=== PATIENT | female | born 1975 | race Caucasian/White ===

== ENCOUNTER → 2016-06-17 | Outpatient (CLI) | payer BC ==
--- NOTE | 2016-06-18 09:56 | MM ---
Reason for exam: screening (asymptomatic). Last mammogram was performed 1 year and 4 months ago. History: Patient history of other cancer and had first child at age 34. Family history of breast cancer in mother and breast cancer in 2 grandmothers. Physical Findings: A clinical breast exam by your physician is recommended on an annual basis and results should be correlated with mammographic findings. MG 3D Screening Mammo W/Cad Bilateral CC and MLO view(s) were taken. Prior study comparison: February 24, 2015, bilateral MG screening mammo w CAD. June 15, 2005, bilateral screening mammogram w/CAD. The breast tissue is heterogeneously dense. This may lower the sensitivity of mammography. No significant changes when compared with prior studies. ASSESSMENT: Benign, BI-RAD 2 RECOMMENDATION: Routine screening mammogram of both breasts in 1 year.
== END | disposition home or self-care (01) ==
LOC: RADMAMWWP 13:15
PROVIDERS: ATTEND Family Medicine
DX: Z12.31 Encounter for screening mammogram for malignant neoplasm of breast (principal)
CPT/HCPCS: 77063; G0202

== ENCOUNTER → 2016-06-17 | Outpatient (CLI) | payer BC ==
[2016-06-17 13:47] LABS: Basophils % (A) 0 %; CH 28.9; CHCM 33.4; Eosinophils # (A) 0.1 k/uL (0-0.7); Eosinophils % (A) 1 %; HCT 45.3 % (34.0-46.0); HDW 2.55; HGB 15.1 gm/dL (11.4-16.0); Luc # (Auto) 0.16; Luc % (Auto) 2; Lymphocytes # (A) 2.4 k/uL (1.0-4.8); Lymphocytes % (A) 32 %; MCH 28.9 pg (25.0-35.0); MCHC 33.3 g/dL (31.0-37.0); MCV 86.9 fL (80.0-100.0); Mean Platelet Volume 7.7; Monocytes # (A) 0.5 k/uL (0-1.0); Monocytes % (A) 7 %; Neutrophils # (A) 4.5 k/uL (1.3-7.7); Neutrophils % (A) 58 %; RBC 5.21 m/uL (3.80-5.40); RDW 13.7 % (11.5-15.5); WBC 7.6 k/uL (3.8-10.6); WBC (Perox) 7.98
[2016-06-17 14:07] LABS: ALT 44 U/L (9-52); AST 28 U/L (14-36); Alkaline Phosphatase 67 U/L (38-126); Anion Gap 13 mmol/L; Blood Urea Nitrogen 13 mg/dL (7-17); Calcium 8.3 mg/dL (8.4-10.2); Carbon Dioxide 27 mmol/L (22-30); Chloride 102 mmol/L (98-107); Glucose 81 mg/dL (74-99); Non-African American GFR(MDRD) >60 (>60 ml/min/1.73 sqM); Potassium 4.3 mmol/L (3.5-5.1); Sodium 142 mmol/L (137-145); Total Bilirubin 0.8 mg/dL (0.2-1.3); Total Protein 7.2 g/dL (6.3-8.2)
== END | disposition home or self-care (01) ==
LOC: LABWHC1 12:54
PROVIDERS: ATTEND Nurse Practitioner Adult Health
DX: Z00.00 Encounter for general adult medical examination without abnormal findings (principal); E03.9 Hypothyroidism, unspecified; E55.9 Vitamin D deficiency, unspecified
CPT/HCPCS: 36415; 80053; 82306; 84439; 84443; 85025

== ENCOUNTER → 2016-06-18 | Outpatient (CLI) | payer BC ==
[2016-06-18 11:30] LABS: Cholesterol 197 mg/dL (<200); HDL Cholesterol 37 mg/dL (40-60); Triglycerides 128 mg/dL (<150)
== END | disposition home or self-care (01) ==
LOC: LABWHC1 10:18
PROVIDERS: ATTEND Nurse Practitioner Adult Health
DX: Z00.00 Encounter for general adult medical examination without abnormal findings (principal); E03.9 Hypothyroidism, unspecified; E55.9 Vitamin D deficiency, unspecified
CPT/HCPCS: 36415; 80061

== ENCOUNTER → 2016-08-12 | Outpatient (CLI) | payer BC | LOC: LABWHC1 14:57 | PROVIDERS: ATTEND Internal Medicine Endocrinology, Diabetes & Metabolism | DX: C73 Malignant neoplasm of thyroid gland (principal); E89.0 Postprocedural hypothyroidism; E89.2 Postprocedural hypoparathyroidism; E55.9 Vitamin D deficiency, unspecified | CPT/HCPCS: 36415; 82306; 83970; 84432; 84439; 84443; 86800 ==

== ENCOUNTER → 2016-08-19 | Outpatient (CLI) | payer BC ==
--- NOTE | 2016-08-19 17:54 | US ---
EXAMINATION TYPE: US thyroid st tissue head/neck DATE OF EXAM: 08/19/2016 5:42 PM COMPARISON: NONE CLINICAL HISTORY: [id number] neoplasm of thyroid gland E89.thyroidectomy 2007, hx of thyroid cancer . Bilateral neck scanned, no evidence of lymphadenopathy. No residual tissue noted. IMPRESSION: No discrete neck mass. Bilateral thyroidectomy noted.
== END | disposition home or self-care (01) ==
LOC: RADUSMAIN 17:25
PROVIDERS: ATTEND Internal Medicine Endocrinology, Diabetes & Metabolism
DX: C73 Malignant neoplasm of thyroid gland (principal); E89.0 Postprocedural hypothyroidism; E89.2 Postprocedural hypoparathyroidism
CPT/HCPCS: 76536

== ENCOUNTER → 2017-08-27 | Outpatient (CLI) | payer BC ==
[2017-08-27 08:43] LABS: Basophils % (A) 0 %; Eosinophils % (A) 0 %; HCT 44.1 % (34.0-46.0); HGB 14.9 gm/dL (11.4-16.0); Lymphocytes # (A) 2.1 k/uL (1.0-4.8); Lymphocytes % (A) 29 %; MCH 28.7 pg (25.0-35.0); MCHC 33.8 g/dL (31.0-37.0); Mean Platelet Volume 7.5; Monocytes # (A) 0.5 k/uL (0-1.0); Monocytes % (A) 7 %; Neutrophils # (A) 4.5 k/uL (1.3-7.7); Neutrophils % (A) 62 %; Platelet Count 252 k/uL (150-450); RBC 5.19 m/uL (3.80-5.40); RDW 13.8 % (11.5-15.5); WBC 7.2 k/uL (3.8-10.6)
[2017-08-27 08:56] LABS: ALT 54 U/L (9-52); AST 25 U/L (14-36); Albumin 4.1 g/dL (3.5-5.0); Alkaline Phosphatase 51 U/L (38-126); Anion Gap 11 mmol/L; Blood Urea Nitrogen 17 mg/dL (7-17); Calcium 7.8 mg/dL (8.4-10.2); Carbon Dioxide 27 mmol/L (22-30); Chloride 106 mmol/L (98-107); Cholesterol 159 mg/dL (<200); Glucose 93 mg/dL (74-99); HDL Cholesterol 34 mg/dL (40-60); LDL Cholesterol,Calculated 99 mg/dL (0-99); Potassium 4.7 mmol/L (3.5-5.1); Sodium 144 mmol/L (137-145); Total Bilirubin 0.3 mg/dL (0.2-1.3); Total Protein 6.8 g/dL (6.3-8.2); Triglycerides 130 mg/dL (<150)
[2017-08-27 09:12] LABS: T4, Free (Free Thyroxine) 0.84 ng/dL (0.78-2.19)
[2017-08-27 17:12] LABS: Vitamin D 25 Hydroxy 90.9 ng/mL (30.0-100.0)
[2017-08-27 17:15] LABS: Parathyroid Hormone Intact 34.8 pg/mL (14.0-72.0)
== END | disposition home or self-care (01) ==
LOC: LABWHC1 08:13
PROVIDERS: ATTEND Family Medicine
DX: Z00.00 Encounter for general adult medical examination without abnormal findings (principal); C73 Malignant neoplasm of thyroid gland; E89.0 Postprocedural hypothyroidism; E55.9 Vitamin D deficiency, unspecified; E89.2 Postprocedural hypoparathyroidism
CPT/HCPCS: 36415; 80053; 80061; 82306; 83970; 84439; 84443; 85025; 86800

== ENCOUNTER → 2017-10-04 | Outpatient (CLI) | payer BC ==
--- NOTE | 2017-10-05 11:09 | MM ---
Reason for exam: screening (asymptomatic). Last mammogram was performed 1 year and 4 months ago. History: Patient history of other cancer and had first child at age 34. Family history of breast cancer in mother and breast cancer in 2 grandmothers. Physical Findings: A clinical breast exam by your physician is recommended on an annual basis and results should be correlated with mammographic findings. MG 3D Screening Mammo W/Cad Bilateral CC and MLO view(s) were taken. Prior study comparison: June 17, 2016, bilateral MG 3d screening mammo w/cad. February 24, 2015, bilateral MG screening mammo w CAD. The breast tissue is heterogeneously dense. This may lower the sensitivity of mammography. There is no discrete abnormality. ASSESSMENT: Benign, BI-RAD 2 RECOMMENDATION: Routine screening mammogram of both breasts in 1 year.
== END | disposition home or self-care (01) ==
LOC: RADMAMWWP 12:29
PROVIDERS: ATTEND Family Medicine
DX: Z12.31 Encounter for screening mammogram for malignant neoplasm of breast (principal)
CPT/HCPCS: 77063; 77067

== ENCOUNTER → 2017-10-04 | Outpatient (CLI) | payer BC ==
--- NOTE | 2017-10-04 14:28 | US ---
EXAMINATION TYPE: US thyroid st tissue head/neck DATE OF EXAM: 10/04/2017 COMPARISON: US CLINICAL HISTORY: C73 Malignant neoplasm of thyroid...... thyroidectomy GLAND SIZE: Right Lobe: Surgically absent Left Lobe: Surgically absent Isthmus Thickness: Surgically absent NODULES RIGHT: # of nodules measured on right: 0 LEFT: # of nodules measured on left: 0 ISTHMUS: # of nodules measured in the isthmus: 0 Bilateral neck scanned, no evidence of lymphadenopathy. No residual tissue seen. IMPRESSION: No residual thyroid tissue in the thyroidectomy surgical bed or abnormal local adenopathy.
== END | disposition home or self-care (01) ==
LOC: RADUSWWP 12:33
PROVIDERS: ATTEND Internal Medicine Endocrinology, Diabetes & Metabolism
DX: C73 Malignant neoplasm of thyroid gland (principal); E89.0 Postprocedural hypothyroidism; E55.9 Vitamin D deficiency, unspecified; E89.2 Postprocedural hypoparathyroidism
CPT/HCPCS: 76536

== ENCOUNTER → 2018-11-03 | Outpatient (CLI) | payer BC ==
[2018-11-03 17:02] LABS: T4, Free (Free Thyroxine) 1.4 ng/dL (0.80-1.80)
[2018-11-03 17:36] LABS: Thyroglobulin <0.20 ng/mL (1.60-59.90)
== END | disposition home or self-care (01) ==
LOC: LABWHC1 11:40
PROVIDERS: ATTEND Internal Medicine Endocrinology, Diabetes & Metabolism
DX: C73 Malignant neoplasm of thyroid gland (principal)
CPT/HCPCS: 36415; 84432; 84439; 84443; 86800

== ENCOUNTER → 2019-03-02 | Outpatient (CLI) | payer BC ==
--- NOTE | 2019-03-05 09:43 | MM ---
Reason for exam: screening (asymptomatic). Last mammogram was performed 1 year and 5 months ago. History: Patient history of other cancer and had first child at age 34. Family history of breast cancer in mother and breast cancer in 2 grandmothers. Physical Findings: A clinical breast exam by your physician is recommended on an annual basis and results should be correlated with mammographic findings. MG 3D Screening Mammo W/Cad Bilateral CC and MLO view(s) were taken. Prior study comparison: October 04, 2017, bilateral MG 3d screening mammo w/cad. June 17, 2016, bilateral MG 3d screening mammo w/cad. There are scattered fibroglandular densities. No significant changes when compared with prior studies. ASSESSMENT: Benign, BI-RAD 2 RECOMMENDATION: Routine screening mammogram of both breasts in 1 year.
== END | disposition home or self-care (01) ==
LOC: RADMAMWWP 16:30
PROVIDERS: ATTEND Family Medicine
DX: Z12.31 Encounter for screening mammogram for malignant neoplasm of breast (principal)
CPT/HCPCS: 77063; 77067

== ENCOUNTER → 2019-06-05 | Outpatient (CLI) | payer BC ==
[2019-06-05 23:57] LABS: T4, Free (Free Thyroxine) 1.5 ng/dL (0.80-1.80)
== END | disposition home or self-care (01) ==
LOC: LABWHC1 16:06
PROVIDERS: ATTEND Internal Medicine Endocrinology, Diabetes & Metabolism
DX: C73 Malignant neoplasm of thyroid gland (principal); E55.9 Vitamin D deficiency, unspecified; E89.0 Postprocedural hypothyroidism; E89.2 Postprocedural hypoparathyroidism
CPT/HCPCS: 36415; 84439; 84443

== ENCOUNTER → 2019-09-03 | Outpatient (CLI) | payer BC ==
[2019-09-03 09:04] LABS: Basophils % (A) 0 %; Eosinophils # (A) 0.1 k/uL (0-0.7); Eosinophils % (A) 1 %; HCT 45.2 % (34.0-46.0); HGB 15.2 gm/dL (11.4-16.0); Lymphocytes # (A) 2.3 k/uL (1.0-4.8); Lymphocytes % (A) 33 %; MCH 28.4 pg (25.0-35.0); MCHC 33.5 g/dL (31.0-37.0); MCV 84.8 fL (80.0-100.0); Mean Platelet Volume 7.7; Monocytes # (A) 0.3 k/uL (0-1.0); Monocytes % (A) 5 %; Neutrophils # (A) 4.2 k/uL (1.3-7.7); Neutrophils % (A) 60 %; Platelet Count 312 k/uL (150-450); RBC 5.33 m/uL (3.80-5.40); RDW 13.6 % (11.5-15.5)
[2019-09-03 14:53] LABS: African American GFR (CKD) 103.9 (60.0-200.0); Albumin 4.4 g/dL (3.80-4.90); Albumin/Globulin Ratio 2.2 (1.60-3.17); Anion Gap 12.9 mmol/L (4.00-12.00); BUN/Creat Ratio 22.5 Ratio (12.00-20.00); Calcium 8.4 mg/dL (8.7-10.3); Carbon Dioxide 29.1 mmol/L (21.6-31.8); Chol/HDL Ratio 3.89; LDL Cholesterol,Calculated 91.8 mg/dL (0.0-131.0); Non-African American GFR(CKD) 89.7 (60.0-200.0); Potassium 4.1 mmol/L (3.5-5.5); Total Bilirubin 0.5 mg/dL (0.2-1.2); Total Protein 6.4 g/dL (6.2-8.2); VLDL Calculation 18.2 mg/dL (5.00-40.00)
[2019-09-03 20:15] LABS: Hemoglobin A1C 5.2 % (4.0-6.0)
== END | disposition home or self-care (01) ==
LOC: LABWHC1 08:15
PROVIDERS: ATTEND Family Medicine
DX: Z00.00 Encounter for general adult medical examination without abnormal findings (principal)
CPT/HCPCS: 36415; 80053; 80061; 83036; 85025

== ENCOUNTER → 2019-11-14 | Outpatient (CLI) | payer BC ==
[2019-11-14 20:38] LABS: African American GFR (CKD) 103.2 (60.0-200.0); Albumin 4.8 g/dL (3.80-4.90); Calcium 8.6 mg/dL (8.7-10.3)
[2019-11-14 20:47] LABS: T4, Free (Free Thyroxine) 1.5 ng/dL (0.80-1.80)
== END | disposition home or self-care (01) ==
LOC: LABWHC1 10:08
PROVIDERS: ATTEND Internal Medicine Endocrinology, Diabetes & Metabolism
DX: C73 Malignant neoplasm of thyroid gland (principal); E55.9 Vitamin D deficiency, unspecified; E89.0 Postprocedural hypothyroidism; E89.2 Postprocedural hypoparathyroidism
CPT/HCPCS: 36415; 82040; 82306; 82310; 82565; 83970; 84432; 84439; 84443; 86800

== ENCOUNTER → 2020-04-03 | Outpatient (CLI) | payer BC ==
--- NOTE | 2020-04-03 16:31 | US ---
EXAMINATION TYPE: US pelvis complete transvag DATE OF EXAM: 04/03/2020 COMPARISON: NONE CLINICAL HISTORY: N92.1 FREQUENT MENSTRUATION WITH IRREGULAR CYCLE. TECHNIQUE: . Transabdominal sonographic images of the pelvis were acquired. Transvaginal sonographi c images were medically necessary to better assess the following anatomy: Uterus and ovaries Date of LMP: 03/24/2020 EXAM MEASUREMENTS: Uterus: 9.1 x 4.4 x 5.5 cm Endometrial Stripe: 0.5 cm Right Ovary: 2.8 x 1.7 x 1.7 cm 1. Uterus: Anteverted Heterogeneous 2. Endometrium: wnl 3. Right Ovary: wnl 4. Left Ovary: Cystic area visualized in left adnexa, possible left ovarian cyst vs other measuring 5.8 x 6.1 x 6.6 cm. There is peripheral flow visualized within this area 5. Bilateral Adnexa: See above 6. Posterior cul-de-sac: wnl Anteverted uterus. There is large thin walled 6.6 x 5.8 x 6.1 cm cyst in the left adnexa presumed wi thin the left ovary. IMPRESSION: Benign simple cyst left adnexal presumed ovary. Follow-up either in 2-6 months for resolution/re-characterization or in 6-12 months for growth rate a ssessment is advised.
== END | disposition home or self-care (01) ==
LOC: RADUSWWP 15:48
PROVIDERS: ATTEND Family Medicine
DX: N92.1 Excessive and frequent menstruation with irregular cycle (principal); N83.292 Other ovarian cyst, left side
CPT/HCPCS: 76830; 76856; 93976

== ENCOUNTER → 2020-04-15 | Outpatient (CLI) | payer BC ==
--- NOTE | 2020-04-16 09:22 | MM ---
Reason for exam: screening (asymptomatic). Last mammogram was performed 1 year and 1 month ago. History: Patient history of other cancer and had first child at age 34. Family history of breast cancer in mother and breast cancer in 2 grandmothers. Physical Findings: A clinical breast exam by your physician is recommended on an annual basis and results should be correlated with mammographic findings. MG 3D Screening Mammo W/Cad Bilateral CC and MLO view(s) were taken. Prior study comparison: March 02, 2019, bilateral MG 3d screening mammo w/cad. October 04, 2017, bilateral MG 3d screening mammo w/cad. The breast tissue is heterogeneously dense. This may lower the sensitivity of mammography. There is no discrete abnormality. No significant changes when compared with prior studies. ASSESSMENT: Negative, BI-RAD 1 RECOMMENDATION: Routine screening mammogram of both breasts in 1 year.
== END | disposition home or self-care (01) ==
LOC: RADMAMWWP 09:27
PROVIDERS: ATTEND Family Medicine
DX: Z12.31 Encounter for screening mammogram for malignant neoplasm of breast (principal)
CPT/HCPCS: 77063; 77067

== ENCOUNTER → 2020-08-04 | Outpatient (CLI) | payer BC ==
[2020-08-04 10:24] LABS: Basophils # (A) 0.1 k/uL (0-0.2); Basophils % (A) 1 %; Eosinophils % (A) 0 %; HCT 49.4 % (34.0-46.0); HGB 16.2 gm/dL (11.4-16.0); Lymphocytes # (A) 2.9 k/uL (1.0-4.8); Lymphocytes % (A) 30 %; MCH 29.2 pg (25.0-35.0); MCHC 32.7 g/dL (31.0-37.0); MCV 89.3 fL (80.0-100.0); Mean Platelet Volume 6.9; Monocytes # (A) 0.7 k/uL (0-1.0); Monocytes % (A) 7 %; Neutrophils # (A) 5.8 k/uL (1.3-7.7); Neutrophils % (A) 60 %; Platelet Count 308 k/uL (150-450); RBC 5.54 m/uL (3.80-5.40); RDW 13.6 % (11.5-15.5); WBC 9.6 k/uL (3.8-10.6)
[2020-08-04 11:45] LABS: African American GFR (CKD) >90 (>60 ml/min/1.73 sqM); Anion Gap 11 mmol/L; Blood Urea Nitrogen 11 mg/dL (7-17); Carbon Dioxide 29 mmol/L (22-30); Chloride 100 mmol/L (98-107); Glucose 83 mg/dL (74-99); Non-African American GFR(CKD) >90 (>60 ml/min/1.73 sqM); Potassium 4.6 mmol/L (3.5-5.1); Sodium 140 mmol/L (137-145)
== END | disposition home or self-care (01) ==
LOC: LABPAT 09:40
PROVIDERS: ATTEND Obstetrics & Gynecology
DX: Z01.812 Encounter for preprocedural laboratory examination (principal); N83.202 Unspecified ovarian cyst, left side
CPT/HCPCS: 80051; 82565; 82947; 84520; 85025; 86850; 86900; 86901; 87086

== ENCOUNTER 2020-08-12 06:09 | Day surgery (SDC) | payer BC, OTHER ==
[2020-08-11 08:31] VITALS: BMI 36.0
[~2020-08-12 06:09] MED LIST: DEXAMETHASONE SOD PHOSPHATE 4 MG/ML 1 ML VIAL IV ONE; HYDROmorphone 0.5 MG/0.5 ML SYRINGE IVP PRN; LACTATED RINGERS 1,000 ML IV SCH; ONDANSETRON 4 MG/2 ML VIAL IVP ONE; Pre Op ABX Message 1 EACH MISC MISCELLANE ONE; fentaNYL (PF) 50 MCG/ML 2 ML AMP IV PRN
[2020-08-12] MEDS ORDERED: LACTATED RINGERS 1,000 ML IV ONE ×3 (06:41→08:11)
[2020-08-12 07:14] VITALS: TEMP 97.8
[2020-08-12] MEDS ORDERED: SCOPOLAMINE 1.5MG/72HR PATCH TRANSDERM ONE (07:14)
[2020-08-12] MEDS ORDERED: DEXAMETHASONE SOD PHOSPHATE 4 MG/ML 1 ML VIAL IVP ONE (07:14)
[2020-08-12] MEDS ORDERED: KETOROLAC 15 MG/ML 1 ML VIAL ONE (07:24)
[2020-08-12] MEDS ORDERED: fentaNYL (PF) 50 MCG/ML 2 ML AMP ONE (07:24)
[2020-08-12] MEDS ORDERED: ROCURONIUM 10 MG/ML (5 ML VIAL) IV ONE (07:24)
[2020-08-12] MEDS ORDERED: NEOSTIGMINE 1 MG/ML 10 ML VIAL ONE (07:24)
[2020-08-12] MEDS ORDERED: PROPOFOL 10 MG/ML 20 ML VIAL IV ONE (07:24)
[2020-08-12] MEDS ORDERED: GLYCOPYRROLATE 0.2 MG/ML 2 ML VIAL ONE (07:24)
[2020-08-12] MEDS ORDERED: MIDAZOLAM 2 MG/2 ML VIAL ONE (07:24)
[2020-08-12] MEDS ORDERED: SUCCINYLCHOLINE CHLORIDE VIAL 200 MG/10 ML VIAL IV ONE (07:24)
[2020-08-12] MEDS ORDERED: LIDOCAINE 1% INJ 10MG/ML (20 ML MDV) ONE (07:24)
[2020-08-12] MEDS ORDERED: SODIUM CHLORIDE 0.9% 50 ML with ceFAZolin 2,000 MG IV ONE ×2 (07:29)
[2020-08-12] MEDS ORDERED: BUPIVACAINE (PF) 0.25% 30 ML VIAL SQ ONE (08:09)
--- NOTE | 2020-08-12 08:51 | P.OP ---
Date of Procedure: 08/12/20 Preoperative Diagnosis: Left ovarian cyst Postoperative Diagnosis: Same Procedure(s) Performed: Asst. laparoscopic assisted left salpingo-oophorectomy Anesthesia: GETA Surgeon: Nichol Alonso Dental Director #1: Naina Mo
--- NOTE | 2020-08-12 09:06 | P.OP ---
Date of Procedure: 08/12/20 Preoperative Diagnosis: Left ovarian cyst Postoperative Diagnosis: Same Procedure(s) Performed: Robotic-assisted laparoscopic left salpingo- oophorectomy Anesthesia: SAMI Surgeon: Nichlo Alonso Phone Representative #1: Naina Mo Estimated Blood Loss (ml): 5 IV fluids (ml): 1,000 Urine output (ml): 200 Pathology: other (Left fallopian tube and ovary) Condition: stable Indications for Procedure: 7 cm simple left ovarian cyst Operative Findings: Simple appearing approximately 10 cm left ovarian cyst with clear to straw- colored fluid. Large vascular pedicle. Normal-appearing right fallopian tube and ovary. Normal-appearing uterus. Description of Procedure: After the patient was met in the preoperative holding area and all questions were answered, she was taken to the operating room anesthetic was administered without incident. She was in positioned, prepped and draped in the dorsal lithotomy position. Jean catheter was placed. Weighted speculum was placed in the vagina and the cervix was grasped anteriorly with a single-tooth tenaculum. [place] uterine manipulator was placed. Attention was then turned to the abdomen. An 8 mm supraumbilical skin incision was made. The anterior abdominal wall was elevated and varies needle was inserted. Saline drip test indicated intraperitoneal placement. Initial filling pressure was CO2 gas was less than 5 mm. The abdomen was then insufflated with CO2 gas to a total filling pressure of 14 mm. The varies needle was removed and under direct visualization with the optical trocar the 5 mm camera was introduced. Intraperitoneal placement was confirmed. The patient was placed in Trendelenburg. The above findings were noted. Under direct visualization right and left 8 mm da Davy ports were placed. A 10 mm left upper quadrant port was placed. The robot was then docked per protocol without difficulty. Metzenbaum scissors were in arm 1 and [place] bipolar electrocautery was in arm 2. At the console, the pelvis was further inspected. The right fallopian tube and ovary looked normal. There was a very large vascular pedicle on to the left ovary and I did not believe it was safe to attempt to shell out the cyst from the underlying ovarian tissue secondary to bleeding concerns. Therefore the infundibulopelvic ligament was sequentially cauterized and cut. The very vascular tubo-ovarian pedicle was sequentially cauterized and cut. The specimen was then completely removed. This placed in an Endo Catch bag. The cyst needed to be decompressed to completely fit in the bag and cyst fluid was drained into the Endo Catch bag. It was clear to slightly straw-colored. This decompressed the ovary enough to fit into the Endo Catch bag which was then removed through the 10 mm port. The fascial incision needed to be extended by approximate 5 mm to facilitate removal of the specimen. The pedicle was then reinspected and noted to be hemostatic. The pelvis was suction irrigated. The devices were then removed from the ports. The robot was undocked. The fascia was closed in a [id number] fashion with 0 Vicryl suture in the left upper quadrant port. Skin was then closed using 4-0 Vicryl s uture. Instruments removed from the vagina as was the Jean catheter. All counts reported to me as correct by the operating room staff. The patient was awoken from anesthetic and transported recovery area in good condition.
[2020-08-12] MEDS: HYDROmorphone 0.5 MG/0.5 ML SYRINGE IVP PRN ×4 (09:20→09:52)
[2020-08-12 10:22] VITALS: RESP 18
[2020-08-12 10:53] VITALS: BP 134/88; PULSE 89
== END 2020-08-12 11:00 | disposition home or self-care (01) ==
LOC: OR 06:09
PROVIDERS: ATTEND Obstetrics & Gynecology
DX: D27.1 Benign neoplasm of left ovary (principal); F32.9 Major depressive disorder, single episode, unspecified; N39.3 Stress incontinence (female) (male); E89.0 Postprocedural hypothyroidism; K21.9 Gastro-esophageal reflux disease without esophagitis; Z88.5 Allergy status to narcotic agent; Z85.850 Personal history of malignant neoplasm of thyroid; Z92.3 Personal history of irradiation; Z98.890 Other specified postprocedural states; Z90.89 Acquired absence of other organs; Z87.59 Personal history of other complications of pregnancy, childbirth and the puerperium; Z79.899 Other long term (current) drug therapy; Z97.5 Presence of (intrauterine) contraceptive device; Z79.890 Hormone replacement therapy; Z80.3 Family history of malignant neoplasm of breast; Z80.49 Family history of malignant neoplasm of other genital organs
CPT/HCPCS: 58661; S2900; 81025; 86850; 86900; 86901; 88307

== ENCOUNTER → 2020-10-24 | Outpatient (CLI) | payer BC ==
[2020-10-25 04:01] LABS: T4, Free (Free Thyroxine) 1.1 ng/dL (0.80-1.80)
[2020-10-25 04:35] LABS: African American GFR (CKD) 78.2 (60.0-200.0); Albumin 5.2 g/dL (3.80-4.90); Calcium 9.5 mg/dL (8.7-10.3); Non-African American GFR(CKD) 67.5 (60.0-200.0)
== END | disposition home or self-care (01) ==
LOC: LABWHC1 08:07
PROVIDERS: ATTEND Internal Medicine Endocrinology, Diabetes & Metabolism
DX: C73 Malignant neoplasm of thyroid gland (principal); E55.9 Vitamin D deficiency, unspecified; E89.0 Postprocedural hypothyroidism; E89.2 Postprocedural hypoparathyroidism
CPT/HCPCS: 36415; 82040; 82306; 82310; 82565; 83970; 84432; 84439; 84443; 86800

== ENCOUNTER → 2021-05-29 | Outpatient (CLI) | payer BC ==
--- NOTE | 2021-06-01 13:50 | MM ---
Reason for exam: screening (asymptomatic). Last mammogram was performed 1 year and 1 month ago. History: Patient history of other cancer and had first child at age 34. Family history of breast cancer in mother and breast cancer in 2 grandmothers. Physical Findings: A clinical breast exam by your physician is recommended on an annual basis and results should be correlated with mammographic findings. MG 3D Screening Mammo W/Cad Bilateral CC and MLO view(s) were taken. Prior study comparison: April 15, 2020, bilateral MG 3d screening mammo w/cad. March 02, 2019, bilateral MG 3d screening mammo w/cad. The breast tissue is heterogeneously dense. This may lower the sensitivity of mammography. No significant changes when compared with prior studies. ASSESSMENT: Negative, BI-RAD 1 RECOMMENDATION: Routine screening mammogram of both breasts in 1 year.
== END | disposition home or self-care (01) ==
LOC: RADMAMWWP 07:01
PROVIDERS: ATTEND Family Medicine
DX: Z12.31 Encounter for screening mammogram for malignant neoplasm of breast (principal); Z80.3 Family history of malignant neoplasm of breast
CPT/HCPCS: 77063; 77067

== ENCOUNTER → 2023-02-09 | Outpatient (CLI) | payer BC ==
--- NOTE | 2023-02-10 08:25 | MM ---
Reason for Exam: Screening (asymptomatic). Last mammogram was performed 1 year(s) and 8 month(s) ago. Patient History: Menarche at age 11. First Full-Term at age 34. Late child-bearing (after 29). Left ovary removed at age 46. Patient has history of breast feeding. Other cancer. Currently using Hormonal Contraceptives, for 20 years. Paternal grandmother had breast cancer. Paternal grandmother had breast cancer. Mother had breast cancer. Last menstrual period: 01/16/2023 Risk Values: Chrissy 5 year model risk: 1.8%. NCI Lifetime model risk: 17.8%. Prior Study Comparison: 03/02/2019 Bilateral Screening Mammogram, [facility]. 04/15/2020 Bilateral Screening Mammogram, [facility]. 05/29/2021 Bilateral Screening Mammogram, [facility]. Tissue Density: The breast tissue is heterogeneously dense. This may lower the sensitivity of mammography. Findings: Analyzed By CAD. A benign scattered calcifications. There is a rounded obscured density in the CC view lateral right breast. There is a asymmetric density in the central aspect of the left breast. Overall Assessment: Incomplete: need additional imaging evaluation, BI-RAD 0 Management: Diagnostic Mammogram of both breasts. . [facility] will attempt to contact patient to return for supplemental views and ultrasound if indicated. Patient should continue monthly self-breast exams. A clinical breast exam by your physician is recommended on an annual basis. This exam should not preclude additional follow-up of suspicious palpable abnormalities. Note on Chrissy scores and lifetime risk: 1. A Chrissy score greater than 3% is considered moderate risk. If this is the case, consider specialist referral to assess eligibility for a risk reducing agent. 2. If overall lifetime risk for the development of breast cancer is 20% or higher, the patient may qualify for future screening with alternating mammogram and breast MRI. Electronically signed and approved by: Jhoan Almazan M.D. Radiologis
== END | disposition home or self-care (01) ==
LOC: RADMAMWWP 08:20
PROVIDERS: ATTEND Family Medicine
DX: Z12.31 Encounter for screening mammogram for malignant neoplasm of breast (principal); Z80.3 Family history of malignant neoplasm of breast
CPT/HCPCS: 77063; 77067

== ENCOUNTER 2023-05-09 08:29 | Emergency (ER) | payer BC ==
[2023-05-09] MEDS ORDERED: FAMOTIDINE 20 MG/2 ML VIAL IV STA (08:44)
[2023-05-09] MEDS ORDERED: ONDANSETRON 4 MG/2 ML VIAL IVP STA (08:44)
[2023-05-09] MEDS ORDERED: SODIUM CHLORIDE 0.9% 1,000 ML IV STA (08:44)
[2023-05-09 09:18] VITALS: TEMP 97
[2023-05-09 09:34] LABS: Basophils # (A) 0.1 k/uL (0-0.2); Basophils % (A) 1 %; Eosinophils # (A) 0.1 k/uL (0-0.7); Eosinophils % (A) 1 %; HCT 54.1 % (34.0-46.0); HGB 18.8 gm/dL (11.4-16.0); Lymphocytes # (A) 1.5 k/uL (1.0-4.8); Lymphocytes % (A) 15 %; MCH 30.3 pg (25.0-35.0); MCHC 34.9 g/dL (31.0-37.0); MCV 86.8 fL (80.0-100.0); Mean Platelet Volume 8.7; Monocytes # (A) 0.7 k/uL (0-1.0); Monocytes % (A) 7 %; Neutrophils # (A) 7.4 k/uL (1.3-7.7); Neutrophils % (A) 74 %; Platelet Count 271 k/uL (150-450); RBC 6.23 m/uL (3.80-5.40); RDW 13.7 % (11.5-15.5)
[2023-05-09 09:38] LABS: ALT 13 U/L (4-34); AST 21 U/L (14-36); African American GFR (CKD) 89 (>60 ml/min/1.73 sqM); Alkaline Phosphatase 77 U/L (38-126); Amylase 51 U/L (30-110); Anion Gap 14 mmol/L; Blood Urea Nitrogen 14 mg/dL (7-17); Calcium 8.7 mg/dL (8.4-10.2); Carbon Dioxide 29 mmol/L (22-30); Chloride 99 mmol/L (98-107); Glucose 96 mg/dL (74-99); Lipase 56 U/L (23-300); Non-African American GFR(CKD) 77 (>60 ml/min/1.73 sqM); Potassium 3.8 mmol/L (3.5-5.1); Sodium 142 mmol/L (137-145); Total Protein 8.2 g/dL (6.3-8.2)
--- NOTE | 2023-05-09 12:51 | CT ---
EXAMINATION TYPE: CT abdomen pelvis w con CT DLP: 868.9 mGycm, Automated exposure control for dose reduction was used. DATE OF EXAM: 05/09/2023 11:37 AM COMPARISON: None CLINICAL INDICATION:Female, 47 years old with history of Abd pain, N/V/D; Abdomen pain, N/V/D for las t 9 days. TECHNIQUE: Axial CT of the abdomen and pelvis. Sagittal and coronal reformats were created on a [employer] workstation. Contrast used:100 mL of Isovue 300 with IV Contrast, (none if empty) Oral contrast used: without Oral Contrast (none if empty) FINDINGS: LOWER CHEST: Heart is not enlarged. Lung bases are clear. Small hiatal hernia with apparent mild lobu lar thickening of the wall. ABDOMEN LIVER: Slightly heterogeneous without focal mass lesion. GALLBLADDER AND BILE DUCTS: A couple of gallbladder calculi measuring up to 9 mm. Additional 6.5 mm c alculus is seen close to the gallbladder neck. Gallbladder appears mildly distended without clear-cut pericholecystic inflammatory changes. No biliary dilatation is seen. Portal veins are enhancing. PANCREAS: Unremarkable. SPLEEN: Unremarkable. ADRENAL GLANDS: Unremarkable. KIDNEYS AND URETERS: Kidneys enhance symmetrically. No evidence of hydronephrosis or visible renal ca lculus. The ureters are unremarkable. PELVIS BLADDER: Incompletely distended but grossly unremarkable. REPRODUCTIVE: Uterus and presumed right ovary have unremarkable CT appearances. Left ovary not clearl y seen. ABDOMEN & PELVIS STOMACH AND BOWEL: Stomach and small bowel show no evidence of obstruction. Small amount of fluid in the duodenum. Some scattered fluid in the more distal small bowel loops without significant distentio n seen. Some fluid contents in the right side of the colon. A few colonic diverticula are suggested, without definite focal inflammation to suggest diverticulitis. Appendix is not identified with certai nty, however there is no inflammatory process seen in the RLQ. PERITONEUM/RETROPERITONEUM: No evidence of pneumoperitoneum or free fluid. VASCULATURE: No evidence of aortic aneurysm. MUSCULOSKELETAL: No acute osseous abnormalities. Mild degenerative changes. LYMPH NODES: No gross evidence for lymphadenopathy. SOFT TISSUE/ABDOMINAL WALL: Tiny fat-containing umbilical hernia. IMPRESSION: 1. Cholelithiasis within a mildly distended gallbladder. If concern for development of acute cholecy stitis, follow-up ultrasound or HIDA scan may be obtained. 2. Small hiatal hernia with mildly thickened appearance of its wall. Consider esophagitis versus ronn plasm. Upper endoscopy could be of benefit. 3. Scattered fluid throughout nondistended bowel loops and proximal colon, correlate for enteritis. No evidence of bowel obstruction or free air.
[2023-05-09 13:14] LABS: Mucus,Urine Moderate /hpf; RBC,Urine 3 /hpf (0-5); Squamous Epithelial Cell,Urine 2 /hpf (0-4); WBC,Urine 1 /hpf (0-5)
[2023-05-09 13:38] LABS: Appearance,Urine Clear (Clear); Color,Urine Yellow; PH, Urine 5.5 (5.0-8.0)
[2023-05-09 13:39] LABS: Bilirubin,Urine Negative (Negative); Glucose,Urine (UA) Negative (Negative); Ketones,Urine 1+ (Negative); Protein,Urine 20 (Negative)
[2023-05-09 13:40] LABS: Blood,Urine Negative (Negative); Leukocyte Esterase,Urine Negative (Negative); Nitrite,Urine Negative (Negative); Urobilinogen,Urine <2.0 mg/dL (<2.0)
[2023-05-09 13:42] LABS: Specific Gravity,Urine >1.050 (1.001-1.035)
[2023-05-09] MEDS ORDERED: ONDANSETRON 4 MG ODT STARTER PACK 2 TAB BTL PO STA (13:53)
--- NOTE | 2023-05-09 13:57 | ED ---
Nausea/Vomiting/Diarrhea HPI - General Chief complaint: Nausea/Vomiting/Diarrhea Stated complaint: Vomiting, Diarrhea Time Seen by Provider: 05/09/23 08:36 Source: patient, RN notes reviewed Mode of arrival: ambulatory Limitations: no limitations - History of Present Illness Initial comments: This is a 47-year-old female who presents to the emergency department for nausea, vomiting, and diarrhea. Believes that symptoms have been going on for approximately 9 days at this point. She has had intermittent episodes of abdominal pain that she believes are related to dry heaving or retching. She reports approximately 4 episodes of loose stool daily. She will occasionally go a day without vomiting, but states that she has no appetite and is afraid to eat, as it will typically trigger another episode of emesis. Denies any fevers or chills. Denies any sick contacts. She has not been on any antibiotics recently or had any recent travel. She initially went to urgent care, who advised she come here for further evaluation. MD complaint: nausea, vomiting, diarrhea Onset/Timin -: days(s) - Related Data Home Medications Medication Instructions Recorded Confirmed Calcium Citrate/Vitamin D3 1 each PO DAILY 08/11/20 08/12/20 [Citracal + D Maximum Caplet] Cetirizine HCl [Zyrtec] 10 mg PO HS 08/11/20 08/12/20 Ergocalciferol (Vitamin D2) 1,250 mcg PO TUSA 08/11/20 08/12/20 [Vitamin D2 (50,000 Iu)] Ferrous Sulfate [Feosol] 325 mg PO DAILY 08/11/20 08/12/20 Montelukast [Singulair] 10 mg PO DAILY 08/11/20 08/12/20 Omeprazole 20 mg PO DAILY 08/11/20 08/12/20 QUEtiapine [SEROquel] 50 mg PO HS 08/11/20 08/12/20 Venlafaxine HCl ER [Effexor Xr] 150 mg PO QAM 08/11/20 08/12/20 Previous Rx's Medication Instructions Recorded Ondansetron Odt [Zofran Odt] 4 mg PO Q8HR PRN #15 tab 05/09/23 Allergies Allergy/AdvReac Type Severity Reaction Status Date / Time codeine Allergy Rash/Hives Verified 12/18/23 08:35 Review of Systems ROS Statement: Those systems with pertinent positive or pertinent negative responses have been documented in the HPI. ROS Other: All systems not noted in ROS Statement are negative. Past Medical History Past Medical History: Cancer, GERD/Reflux, Sleep Apnea/CPAP/BIPAP, Thyroid Disorder Additional Past Medical History / Comment(s): hx thyroid ca, radiation 2008, cyst left ovary, seasonal allergies History of Any Multi-Drug Resistant Organisms: None Reported Past Surgical History: Tonsillectomy Additional Past Surgical History / Comment(s): thyroidectomy, deviated septum, wisdom teeth Past Anesthesia/Blood Transfusion Reactions: Postoperative Nausea & Vomiting (PONV) Past Psychological History: Depression Smoking Status: Never smoker Past Alcohol Use History: Occasional Past Drug Use History: None Reported - Past Family History Mother Family Medical History: Cancer Additional Family Medical History / Comment(s): breast General Exam Limitations: no limitations General appearance: alert, in no apparent distress Head exam: Present: atraumatic, normocephalic, normal inspection Respiratory exam: Present: normal lung sounds bilaterally. Absent: respiratory distress, wheezes, rales, rhonchi, stridor Cardiovascular Exam: Present: regular rate, normal rhythm, normal heart sounds. Absent: systolic murmur, diastolic murmur, rubs, gallop, clicks GI/Abdominal exam: Present: soft, normal bowel sounds. Absent: distended, tenderness, guarding, rebound, rigid Neurological exam: Present: alert, oriented X3, CN II-XII intact Psychiatric exam: Present: normal affect, normal mood Skin exam: Present: warm, dry, intact, normal color. Absent: rash Course Vital Signs 05/09/23 05/09/23 05/09/23 08:32 12:44 14:07 Temperature 97 F L Pulse Rate 111 H 84 89 Respiratory 18 16 18 Rate Blood Pressure 150/89 136/94 124/95 O2 Sat by Pulse 99 98 100 Oximetry Medical Decision Making - Medical Decision Making This is a 47-year-old female who presents to the emergency department for nausea, vomiting, and diarrhea. Was pt. sent in by a medical professional or institution? @ -No Did you speak to anyone other than the patient for history? @ -No Did you review nursing and triage notes? @ -Yes, and I agree, it is accurate with regards to the patient's symptoms. Were old charts reviewed? @ -No Differential Diagnosis? @ -Differential Nausea and Vomiting: Gastroenteritis, cholecystitis, appendicitis, pancreatitis, migraine, benign positional vertigo, food borne illness, pyelonephritis, irritable bowel syndrome, influenza, Covid, GERD, incarcerated hernia, intestinal obstruction, this is not meant to be an all-inclusive list. EKG interpreted by me (3pts min.)? @ -Not obtained X-rays interpreted by me (1pt min.)? @ -Not obtained CT interpreted by me (1pt min.)? @ -Computed tomography scan of the abdomen and pelvis obtained. My interpretation identifies cholelithiasis. U/S interpreted by me (1pt. min.)? @ -Not obtained What testing was considered but not performed? (CT, X-rays, U/S, labs)? Why? @ -None What meds were considered but not given? Why? @ -None Did you discuss the management of the patient with other professionals? @ -No Did you reconcile home meds? @ -No Was smoking cessation discussed for >3mins.? @ -No Was critical care preformed (if so, how long)? @ -No Were there social determinants of health that impacted care today? How? (Homelessness, low income, unemployed, alcoholism, drug addiction, tr ansportation, low edu. Level, literacy, decrease access to med. care, shelter, rehab)? @ -No Was there de-escalation of care discussed even if they declined? (Discuss DNR or withdrawal of care, Hospice)? @ -No What co-morbidities impacted this encounter? (DM, HTN, Smoking, COPD, CAD, Cancer, CVA, Hep., AIDS, mental health diagnosis, sleep apnea, morbid obesity)? @ -None Was patient admitted / discharged? @ -Discharged. Lab work obtained and found to be unremarkable. Covid, influenza, and RSV testing were negative. Urinalysis negative for signs of infection. I did order a C. diff test, however the patient was unable to provide a stool sample prior to discharge. Discussed with the patient the option of a computed tomography scan given the persistent nature of her symptoms. She requested to proceed. She was found to have cholelithiasis with a mildly distended gallbladder. However, patient was not exhibiting any right upper quadrant symptoms at that time. She does note rapid weight loss, which I advised can be a contributing factor. She does also recall various episodes of right upper quadrant pain. She was also found to have a small hiatal hernia and a thickened appearance of its wall suggestive of esophagitis. There was also scattered fluid throughout nondistended bowel loops and proximal colon, suggestive of enteritis. Her symptoms were well controlled in the emergency department with IV fluids, Pepcid, and Zofran, and she was tolerating oral intake. At that point, the patient felt stable for discharge home. She was given information for general surgery follow-up regarding the cholelithiasis. Rx for Zofran provided for any additional nausea and vomiting. She is advised to slowly advance her diet as tolerated and remain well-hydrated. Also discussed [id number] Imodium as needed for diarrhea and close follow up with her primary care provider. Undiagnosed new problem with uncertain prognosis? @ -None Drug Therapy requiring intensive monitoring for toxicity (Heparin, Nitro, Insulin, Cardizem)? @ -None Were any procedures done? @ -None Diagnosis/symptom? @ -N/V/D, enteritis Acute, or Chronic, or Acute on Chronic? @ -Acute Uncomplicated (without systemic symptoms) or Complicated (systemic symptoms)? @ -Uncomplicated Side effects of treatment? @ -None Exacerbation, Progression, or Severe Exacerbation] @ -Not applicable Poses a threat to life or bodily function? @ -No Return precautions reviewed in depth, the patient is instructed to return to the emergency department with any new, worsening, or concerning symptoms. Patient verbalized understanding. This case was discussed in detail with the attending ED physician, Dr. Estrada. Presentation, findings, and treatment plan discussed in detail as well. - Lab Data Result diagrams: 05/09/23 09:00 05/09/23 09:00 Lab Results 05/09/23 05/09/23 05/09/23 Range/Units 09:00 09:00 09:00 WBC 10.0 (3.8-10.6) k/uL RBC 6.23 H (3.80-5.40) m/uL Hgb 18.8 H (11.4-16.0) gm/dL Hct 54.1 H (34.0-46.0) % MCV 86.8 (80.0-100.0) fL MCH 30.3 (25.0-35.0) pg MCHC 34.9 (31.0-37.0) g/dL RDW 13.7 (11.5-15.5) % Plt Count 271 (150-450) k/uL MPV 8.7 Neutrophils % 74 % Lymphocytes % 15 % Monocytes % 7 % Eosinophils % 1 % Basophils % 1 % Neutrophils # 7.4 (1.3-7.7) k/uL Lymphocytes # 1.5 (1.0-4.8) k/uL Monocytes # 0.7 (0-1.0) k/uL Eosinophils # 0.1 (0-0.7) k/uL Basophils # 0.1 (0-0.2) k/uL Sodium 142 (137-145) mmol/L Potassium 3.8 (3.5-5.1) mmol/L Chloride 99 (98-107) mmol/L Carbon Dioxide 29 (22-30) mmol/L Anion Gap 14 mmol/L BUN 14 (7-17) mg/dL Creatinine 0.89 (0.52-1.04) mg/dL Est GFR (CKD-EPI)AfAm 89 (>60 ml/min/1.73 sqM) Est GFR (CKD-EPI)NonAf 77 (>60 ml/min/1.73 sqM) Glucose 96 (74-99) mg/dL Plasma Lactic Acid Kieran 1.3 (0.7-2.0) mmol/L Calcium 8.7 (8.4-10.2) mg/dL Total Bilirubin 1.0 (0.2-1.3) mg/dL AST 21 (14-36) U/L ALT 13 (4-34) U/L Alkaline Phosphatase 77 (38-126) U/L Total Protein 8.2 (6.3-8.2) g/dL Albumin 5.0 (3.5-5.0) g/dL Amylase 51 (30-110) U/L Lipase 56 (23-300) U/L Urine Color Urine Appearance (Clear) Urine pH (5.0-8.0) Ur Specific [place] (1.001-1.035) Urine Protein (Negative) Urine Glucose (UA) (Negative) Urine Ketones (Negative) Urine Blood (Negative) Urine Nitrite (Negative) Urine Bilirubin (Negative) Urine Urobilinogen (<2.0) mg/dL Ur Leukocyte Esterase (Negative) Urine RBC (0-5) /hpf Urine WBC (0-5) /hpf Ur Squamous Epith Cells (0-4) /hpf Urine Mucus (None) /hpf Influenza Type A (PCR) (Not Detectd) Influenza Type B (PCR) (Not Detectd) RSV (PCR) (Not Detectd) SARS-CoV-2 (PCR) (Not Detectd) 05/09/23 05/09/23 Range/Units 09:00 12:24 WBC (3.8-10.6) k/uL RBC (3.80-5.40) m/uL Hgb (11.4-16.0) gm/dL Hct (34.0-46.0) % MCV (80.0-100.0) fL MCH (25.0-35.0) pg MCHC (31.0-37.0) g/dL RDW (11.5-15.5) % Plt Count (150-450) k/uL MPV Neutrophils % % Lymphocytes % % Monocytes % % Eosinophils % % Basophils % % Neutrophils # (1.3-7.7) k/uL Lymphocytes # (1.0-4.8) k/uL Monocytes # (0-1.0) k/uL Eosinophils # (0-0.7) k/uL Basophils # (0-0.2) k/uL Sodium (137-145) mmol/L Potassium (3.5-5.1) mmol/L Chloride (98-107) mmol/L Carbon Dioxide (22-30) mmol/L Anion Gap mmol/L BUN (7-17) mg/dL Creatinine (0.52-1.04) mg/dL Est GFR (CKD-EPI)AfAm (>60 ml/min/1.73 sqM) Est GFR (CKD-EPI)NonAf (>60 ml/min/1.73 sqM) Glucose (74-99) mg/dL Plasma Lactic Acid Kieran (0.7-2.0) mmol/L Calcium (8.4-10.2) mg/dL Total Bilirubin (0.2-1.3) mg/dL AST (14-36) U/L ALT (4-34) U/L Alkaline Phosphatase (38-126) U/L Total Protein (6.3-8.2) g/dL Albumin (3.5-5.0) g/dL Amylase (30-110) U/L Lipase (23-300) U/L Urine Color Yellow Urine Appearance Clear (Clear) Urine pH 5.5 (5.0-8.0) Ur Specific [place] >1.050 H (1.001-1.035) Urine Protein 20 (Negative) Urine Glucose (UA) Negative (Negative) Urine Ketones 1+ H (Negative) Urine Blood Negative (Negative) Urine Nitrite Negative (Negative) Urine Bilirubin Negative (Negative) Urine Urobilinogen <2.0 (<2.0) mg/dL Ur Leukocyte Esterase Negative (Negative) Urine RBC 3 (0-5) /hpf Urine WBC 1 (0-5) /hpf Ur Squamous Epith Cells 2 (0-4) /hpf Urine Mucus Moderate H (None) /hpf Influenza Type A (PCR) Not Detected (Not Detectd) Influenza Type B (PCR) Not Detected (Not Detectd) RSV (PCR) Not Detected (Not Detectd) SARS-CoV-2 (PCR) Not Detected (Not Detectd) - Radiology Data Radiology results: report reviewed, image reviewed Disposition Clinical Impression: Nausea vomiting and diarrhea, Cholelithiasis Disposition: HOME SELF-CARE Instructions (If sedation given, give patient instructions): Biliary Colic (ED), Gallstones (ED), Acute Nausea and Vomiting (ED), Acute Diarrhea (ED) Additional Instructions: Return to the emergency department with any new, worsening, or concerning symptoms. Take the Zofran up to every 8 hours as needed for nausea and vomiting. Slowly advance your diet as tolerated and remain well-hydrated. You can also take [id number] Imodium as needed for diarrhea. Contact general surgery as listed below for a follow-up appointment regarding the gallstones. Follow up with your primary care provider in 1-2 days. Prescriptions: Ondansetron Odt [Zofran Odt] 4 mg PO Q8HR PRN #15 tab PRN Reason: Nausea And Vomiting Is patient prescribed a controlled substance at d/c from ED?: No Referrals: Jhoan Delacruz MD [Primary Care Provider] - 1-2 days Christina Ramos MD [STAFF PHYSICIAN] - 1-2 days
[2023-05-09 14:26] VITALS: BP 124/95; PULSE 89; RESP 18
== END 2023-05-09 14:08 | disposition home or self-care (01) ==
LOC: EC 08:29
DX: K80.20 Calculus of gallbladder without cholecystitis without obstruction (principal); K21.9 Gastro-esophageal reflux disease without esophagitis; G47.30 Sleep apnea, unspecified; F32.A Depression, unspecified; Z79.899 Other long term (current) drug therapy; Z88.5 Allergy status to narcotic agent; Z20.822 Contact with and (suspected) exposure to COVID-19
CPT/HCPCS: 36415; 80053; 82150; 83605; 83690; 85025; 81001; 87636; 74177; 99284; 96374; 96375; 96361; J2405; J3490; S0119; Q9967

== ENCOUNTER → 2023-08-05 | Outpatient (CLI) | payer BC ==
--- NOTE | 2023-08-05 09:43 | MM ---
Reason for Exam: Follow-up at short interval from prior study. Last screening mammogram was performed 6 month(s) ago. Patient History: Menarche at age 11. First Full-Term at age 34. Late child-bearing (after 30). Left ovary removed at age 46. Patient has history of breast feeding. Other cancer. Currently using Hormonal Contraceptives, for 20 years. Paternal grandmother had breast cancer. Paternal grandmother had breast cancer. Mother had breast cancer. Risk Values: Chrissy 5 year model risk: 1.8%. NCI Lifetime model risk: 17.8%. Tissue Density: The breasts are heterogeneously dense, which may obscure small masses. Findings: Analyzed By CAD. The previous bilateral asymmetric densities persist. Findings compatible with superimposition shadow. Return to routine annual screening. No significant change. Overall Assessment: Benign, BI-RAD 2 Management: Screening Mammogram of both breasts in 1 year. . Results were given to the patient verbally at the time of exam. Patient should continue monthly self-breast exams. A clinical breast exam by your physician is recommended on an annual basis. This exam should not preclude additional follow-up of suspicious palpable abnormalities. Note on Chrissy scores and lifetime risk: 1. A Chrissy score greater than 3% is considered moderate risk. If this is the case, consider specialist referral to assess eligibility for a risk reducing agent. 2. If overall lifetime risk for the development of breast cancer is 20% or higher, the patient may qualify for future screening with alternating mammogram and breast MRI. Electronically signed and approved by: Conchita Chadwick M.D. Radiologist
== END | disposition home or self-care (01) ==
LOC: RADMAMWWP 09:17
PROVIDERS: ATTEND Obstetrics & Gynecology
DX: R92.333 Mammographic heterogeneous density, bilateral breasts (principal); Z80.3 Family history of malignant neoplasm of breast
CPT/HCPCS: 77062; 77066

== ENCOUNTER 2023-09-27 13:05 | Day surgery (SDC) | payer BC ==
[2023-09-23 11:08] VITALS: BMI 28.8
[2023-09-27] MEDS: LACTATED RINGERS 1,000 ML IV SCH (13:29)
[2023-09-27 13:42] VITALS: TEMP 97.6
[2023-09-27] MEDS ORDERED: PROPOFOL 10 MG/ML 20 ML VIAL IV ONE (13:48)
--- NOTE | 2023-09-27 13:51 | P.GSHP ---
History of Present Illness H&P Date: 09/27/23 Chief Complaint: Colon cancer screening 48-year-old female here for colonoscopy. She has not had one previously. Was seen in the office previously for rectal bleeding but none recently. No rectal bleeding for the last year or so. No family history of colon cancer. Past Medical History Past Medical History: Cancer, GERD/Reflux, Sleep Apnea/CPAP/BIPAP, Thyroid Disorder Additional Past Medical History / Comment(s): Hx thyroid cancer 2007, had radiation/thyroidectomy, seasonal allergies, CPAP use. History of Any Multi-Drug Resistant Organisms: None Reported Past Surgical History: Cholecystectomy, Hernia Repair, Tonsillectomy Additional Past Surgical History / Comment(s): Thyroidectomy, deviated septum surgery, wisdom teeth removed, left ovary removed, umbilical hernia repair/cholecystectomy Jun 23. Past Anesthesia/Blood Transfusion Reactions: Motion Sickness, Postoperative Nausea & Vomiting (PONV) Additional Past Anesthesia/Blood Transfusion Reaction / Comment(s): Slow to wake up. Mom slow to wake up, PONV. Smoking Status: Never smoker - Past Family History Mother Family Medical History: Cancer Additional Family Medical History / Comment(s): Breast cancer. Medications and Allergies Home Medications Medication Instructions Recorded Confirmed Type Cetirizine HCl [Zyrtec] 10 mg PO DAILY 08/11/20 09/27/23 History Ergocalciferol (Vitamin D2) 1,250 mcg PO TUSA 08/11/20 09/27/23 History [Vitamin D2 (50,000 Iu)] Montelukast [Singulair] 10 mg PO QAM 08/11/20 09/27/23 History Omeprazole 20 mg PO BID 08/11/20 09/27/23 History QUEtiapine [SEROquel] 50 mg PO HS 08/11/20 09/27/23 History Levothyroxine Sodium [Synthroid] 75 mcg PO GALAN 09/23/23 09/27/23 History Levothyroxine Sodium [Synthroid] 150 mcg PO [id number] 09/23/23 09/27/23 History Semaglutide [Wegovy] 2.4 mg SQ FR 09/23/23 09/27/23 History Venlafaxine HCl [Effexor] 150 mg PO QAM 09/23/23 09/27/23 History Allergies Allergy/AdvReac Type Severity Reaction Status Date / Time codeine Allergy Rash/Hives Verified 09/27/23 13:30 Surgical - Exam Vital Signs Temp Pulse Resp BP Pulse Ox 97.6 F 74 18 145/96 99 09/27/23 13:31 09/27/23 13:31 09/27/23 13:31 09/27/23 13:31 09/27/23 13:31 Physical exam: General: Well-developed, well-nourished HEENT: Normocephalic, sclerae nonicteric Abdomen: Nontender, nondistended Extremities: No edema Neuro: Alert and oriented Assessment and Plan (1) Colon cancer screening Narrative/Plan: Will proceed with colonoscopy at this time. Current Visit: Yes Status: Acute Code(s): Z12.11 - ENCOUNTER FOR SCREENING FOR MALIGNANT NEOPLASM OF COLON SNOMED Code(s): 914308055
--- NOTE | 2023-09-27 14:17 | P.PCN ---
Date of Procedure: 09/27/23 Procedure(s) Performed: PREOPERATIVE DIAGNOSIS: Colon cancer screening POSTOPERATIVE DIAGNOSIS: Normal exam tortuous colon PROCEDURE: Colonoscopy ANESTHESIA: MAC SURGEON: Ubaldo Cardenas M.D. SPECIMENS: None ENDOSCOPIC PROCEDURE: The patient was placed on the endoscopy table in the left decubitus position. The Olympus colonoscope was inserted into the anus and passed under direct visualization to the base of the cecum. The appendiceal orifice was visualized. From that point the scope was slowly withdrawn inspecting all surfaces carefully. There were no neoplastic inflammatory or polypoid lesions throughout the cecum, ascending, transverse, descending, sigmoid and rectum. There was no visible diverticulosis noted. The patient's colon was quite tortuous. Digital rectal examination was normal. The patient was taken to the recovery room in stable condition per anesthesia guidelines. RECOMMENDATIONS: Resume diet. Repeat colonoscopy 10 years.
[2023-09-27 14:29] VITALS: RESP 16
[2023-09-27 15:14] VITALS: BP 134/88; PULSE 65
== END 2023-09-27 14:56 | disposition home or self-care (01) ==
LOC: ORWHC2ENDO 13:05
PROVIDERS: ATTEND Surgery
DX: Z12.11 Encounter for screening for malignant neoplasm of colon (principal); K63.89 Other specified diseases of intestine; K21.9 Gastro-esophageal reflux disease without esophagitis; E03.9 Hypothyroidism, unspecified; F32.A Depression, unspecified; Z85.850 Personal history of malignant neoplasm of thyroid; Z90.49 Acquired absence of other specified parts of digestive tract; Z90.721 Acquired absence of ovaries, unilateral; Z98.890 Other specified postprocedural states; Z79.890 Hormone replacement therapy; Z88.5 Allergy status to narcotic agent; Z79.51 Long term (current) use of inhaled steroids; Z79.899 Other long term (current) drug therapy
CPT/HCPCS: 81025; 45378; J2704

== ENCOUNTER → 2023-10-24 | Outpatient (CLI) | payer BC ==
[2023-10-24 16:17] LABS: ALT 27 U/L (8-44); AST 20 U/L (13-35); Albumin 4.9 g/dL (3.8-4.9); Albumin/Globulin Ratio 2.13 Ratio (1.60-3.17); Alkaline Phosphatase 61 U/L (41-126); BUN/Creat Ratio 22.29 Ratio (12.00-20.00); Blood Urea Nitrogen 15.6 mg/dL (9.0-27.0); Calcium 8.9 mg/dL (8.7-10.3); Carbon Dioxide 26.8 mmol/L (21.6-31.8); Chloride 102 mmol/L (96-109); Chol/HDL Ratio 4.76 Ratio; Globulin 2.3 g/dL (1.6-3.3); Glucose 83 mg/dL (70-110); LDL Cholesterol,Calculated 139.9 mg/dL (0.0-131.0); Sodium 140 mmol/L (135-145); T4, Free (Free Thyroxine) 1.34 ng/dL (0.80-1.80); Total Bilirubin 0.3 mg/dL (0.3-1.2); Total Protein 7.2 g/dL (6.2-8.2)
[2023-10-24 16:26] LABS: Basophils # (A) 0.04 X 10*3/uL (0.00-0.10); Basophils % (A) 0.6 %; Eosinophils # (A) 0 X 10*3/uL (0.04-0.35); Eosinophils % (A) 0 %; HCT 45.5 % (37.2-46.3); HGB 14.9 g/dL (12.0-15.0); Lymphocytes % (A) 29.9 %; MCH 29.3 pg (27.0-32.0); MCHC 32.7 g/dL (32.0-37.0); MCV 89.6 FL (80.0-97.0); Mean Platelet Volume 10.5 FL (9.5-12.2); Monocytes % (A) 7.9 %; NRBC Per 100 WBC 0 X 10*3/uL (0.00-0.01); Neutrophils # (A) 3.89 X 10*3/uL (1.80-7.70); Neutrophils % (A) 61.3 %; Platelet Count 279 X 10*3/uL (140-440); RBC 5.08 X 10*6/uL (4.10-5.20); RDW 14.6 % (11.5-14.5); WBC 6.35 X 10*3/uL (4.50-10.00)
[2023-10-24 16:51] LABS: Follicle Stimulating Hormone 30.2 mIU/mL; Luteinizing Hormone 27.8 mIU/mL
== END | disposition home or self-care (01) ==
LOC: LABWHC1 07:27
PROVIDERS: ATTEND Nurse Practitioner Adult Health
DX: E20.9 Hypoparathyroidism, unspecified (principal); E78.5 Hyperlipidemia, unspecified; N95.1 Menopausal and female climacteric states
CPT/HCPCS: 36415; 80053; 80061; 82626; 82671; 83001; 83002; 83036; 84144; 84439; 84443; 85025